=== PATIENT | male | born 1980 | race Caucasian/White ===

== ENCOUNTER 2017-10-27 17:09 | Emergency (ER) | payer OTHER ==
[~2017-10-27] VITALS: Ht 182.9 cm; Wt 109.1 kg
[~2017-10-27 17:09] MED LIST: FLUT16H NASAL
[2017-10-27] MEDS ORDERED: ACETAMINOPHEN/CODEINE 300-30 MG TABLET PO ONE (18:45)
[2017-10-27 20:47] VITALS: BP 131/78
== END 2017-10-27 20:53 | disposition home or self-care (01) ==
LOC: EMS 17:10
DX: S16.1XXA Strain of muscle, fascia and tendon at neck level, initial encounter (principal); S09.90XA Unspecified injury of head, initial encounter; F17.210 Nicotine dependence, cigarettes, uncomplicated; V89.2XXA Person injured in unspecified motor-vehicle accident, traffic, initial encounter; Y93.89 Activity, other specified; Y92.410 Unspecified street and highway as the place of occurrence of the external cause; Y99.8 Other external cause status
CPT/HCPCS: 70450; 72125; 99284; 99406

== ENCOUNTER → 2018-08-31 | Emergency (ER) | payer MEDICAID, OTHER ==
[~2018-08-31] VITALS: Ht 182.9 cm; Wt 110.0 kg
[~2018-08-31] MED LIST changes: +OMEG-53 PEG; +PERTUSS(ACELL),DIPH,TET VAC/PF 0.5 ML VIAL IM ONE
[2018-08-31 08:18] VITALS: BP 136/114
== END | disposition home or self-care (01) ==
LOC: EMS 08:17
DX: S81.032A Puncture wound without foreign body, left knee, initial encounter (principal); F17.210 Nicotine dependence, cigarettes, uncomplicated; Z88.1 Allergy status to other antibiotic agents; W45.8XXA Other foreign body or object entering through skin, initial encounter; Y93.B9 Activity, other involving muscle strengthening exercises; Y92.39 Other specified sports and athletic area as the place of occurrence of the external cause; Y99.8 Other external cause status
CPT/HCPCS: 90471; 90715

== ENCOUNTER 2021-04-26 20:39 | Emergency (ER) | payer MEDICAID ==
[~2021-04-26] VITALS: Ht 182.9 cm; Wt 111.4 kg
[~2021-04-26 20:39] MED LIST changes: -PERTUSS(ACELL),DIPH,TET VAC/PF 0.5 ML VIAL IM ONE
[2021-04-26] MEDS ORDERED: ALPR0.255 PO (21:01)
[2021-04-26 22:45] VITALS: BP 113/62
== END 2021-04-26 22:54 | disposition home or self-care (01) ==
LOC: EMS 20:51
DX: F41.9 Anxiety disorder, unspecified (principal); F17.210 Nicotine dependence, cigarettes, uncomplicated; Z76.0 Encounter for issue of repeat prescription; Z88.0 Allergy status to penicillin; Z88.1 Allergy status to other antibiotic agents; Z79.899 Other long term (current) drug therapy
CPT/HCPCS: 99283; Z7502

== ENCOUNTER 2023-03-02 18:42 | Emergency (ER) | payer MEDICAID, OTHER ==
[~2023-03-02] VITALS: Ht 182.9 cm; Wt 113.6 kg
[~2023-03-02 18:42] MED LIST changes: +ALPR-705 PO; -FLUT16H NASAL; +FLUT16SP NASAL
[2023-03-02 18:44] VITALS: BP 155/98; PULSE 92; RESP 18; TEMP 97.8
[2023-03-02] MEDS ORDERED: DOXY-354 PO (20:55)
== END 2023-03-02 21:02 | disposition home or self-care (01) ==
LOC: EMS 18:48
DX: T81.49XD Infection following a procedure, other surgical site, subsequent encounter (principal); L02.416 Cutaneous abscess of left lower limb; F41.9 Anxiety disorder, unspecified; F17.210 Nicotine dependence, cigarettes, uncomplicated; Z98.890 Other specified postprocedural states; Z88.8 Allergy status to other drugs, medicaments and biological substances
CPT/HCPCS: 99283; Z7502

== ENCOUNTER 2023-05-12 00:37 | Emergency (ER) | payer OTHER ==
[~2023-05-12] VITALS: Ht 182.9 cm; Wt 116.0 kg
[~2023-05-12 00:37] MED LIST changes: +DOXY-354 PO
[2023-05-12 00:46] VITALS: TEMP 97.9
[2023-05-12 03:26] VITALS: BP 123/72; PULSE 62; RESP 17
[2023-05-12] MEDS ORDERED: IBUP-1554 PO (03:39)
== END 2023-05-12 03:48 | disposition home or self-care (01) ==
LOC: EMS 00:38
DX: S86.111A Strain of other muscle(s) and tendon(s) of posterior muscle group at lower leg level, right leg, initial encounter (principal); F41.9 Anxiety disorder, unspecified; Z88.0 Allergy status to penicillin; Z88.8 Allergy status to other drugs, medicaments and biological substances; Z98.890 Other specified postprocedural states; X50.3XXA Overexertion from repetitive movements, initial encounter; Y93.89 Activity, other specified; Y92.89 Other specified places as the place of occurrence of the external cause; Y99.8 Other external cause status
CPT/HCPCS: 99284; 73590-TC; 73610-TC; Z7502